=== PATIENT | male | born 1975 | race Caucasian/White ===

== ENCOUNTER 2017-11-17 12:46 | Day surgery (SDC) | payer OTHER ==
[2017-11-17] MEDS ORDERED: SOD CHLORIDE 0.9% 1,000 ML IV (13:30)
[2017-11-17] MEDS ORDERED: CEFAZOLIN 2 GM/50 ML (PMX) 50 ML IVPB (13:30)
[2017-11-17] MEDS ORDERED: FENTAnyl 50 MCG/ML VIAL (15:42)
[2017-11-17] MEDS ORDERED: SUCCINYLCHOLINE CHLORIDE 100 MG/5 ML SYG IV (15:54)
[2017-11-17] MEDS ORDERED: ROPIVACAINE 0.5 % 30 ML VIAL (15:54)
[2017-11-17] MEDS ORDERED: ROCURONIUM 50 MG INJ (15:54)
[2017-11-17] MEDS ORDERED: PROPOFOL 20 ML (15:54)
[2017-11-17] MEDS ORDERED: SUGAMMADEX SODIUM 200 MG/2 ML VIAL IV (15:54)
[2017-11-17] MEDS ORDERED: CEFAZOLIN 1 GM INJ (15:54)
[2017-11-17] MEDS: BUPIVACAINE 0.25% (MPF) 30 ML INJ (16:01)
[2017-11-17] MEDS: POLYMYXIN/BACITRACIN 1L IRRIG (16:02)
[2017-11-17] MEDS ORDERED: HYDROCODONE/APAP (5/325) TAB PO (17:00)
[2017-11-17] MEDS: HYDROmorphONE (0.2 MG/ML) 10ML SYG IV (17:29)
[2017-11-17] MEDS ORDERED: DIPHENHYDRAMINE 50 MG INJ IV (17:30)
[2017-11-17] MEDS: FENTAnyl 50 MCG/ML VIAL IV (17:30)
[2017-11-17] MEDS: ONDANSETRON 4 MG INJ IV (17:30)
[2017-11-17] MEDS ORDERED: FENTAnyl 50 MCG/ML VIAL IV (17:30)
[2017-11-17] MEDS ORDERED: ALBUTEROL 0.083% (NEB) 2.5 MG/3 ML AMP HHN (17:30)
[2017-11-17] MEDS ORDERED: MEPERIDINE 25 MG INJ IV (17:30)
[2017-11-17] MEDS ORDERED: METOCLOPRAMIDE 10 MG INJ IV (17:30)
[2017-11-17] MEDS ORDERED: HYDROmorphONE (0.2 MG/ML) 10ML SYG IV ×2 (17:30)
== END 2017-11-17 18:15 | disposition home or self-care (01) ==
LOC: SDS 12:46
DX: K40.30 Unilateral inguinal hernia, with obstruction, without gangrene, not specified as recurrent (principal)
CPT/HCPCS: 49507; 88302